=== PATIENT | male | born 1945 | race Two or more races ===

== ENCOUNTER 2022-08-30 08:58 | Emergency (ER) | payer OTHER ==
[~2022-08-30] VITALS: Ht 177.8 cm; Wt 90.7 kg
[~2022-08-30 08:58] MED LIST: METFORMIN HCL500 M1 PO
== END 2022-08-30 15:02 | disposition home or self-care (01) ==
LOC: ER 08:58
DX: S82.841A Displaced bimalleolar fracture of right lower leg, initial encounter for closed fracture (principal); W18.39XA Other fall on same level, initial encounter; Y93.89 Activity, other specified; Y92.018 Other place in single-family (private) house as the place of occurrence of the external cause